=== PATIENT | female | born 1985 | race Caucasian/White ===

== ENCOUNTER 2023-12-25 22:43 | Emergency (ER) | payer SELFPAY ==
[2023-12-25] MEDS ORDERED: Ketorolac Tromethamine 10 MG TAB ONE (23:25)
== END 2023-12-25 23:28 | disposition home or self-care (01) ==
LOC: MADERS 22:43
DX: S43.402A Unspecified sprain of left shoulder joint, initial encounter (principal); F17.290 Nicotine dependence, other tobacco product, uncomplicated; X50.9XXA Other and unspecified overexertion or strenuous movements or postures, initial encounter